=== PATIENT | male | born 2000 ===

== ENCOUNTER 2019-07-03 15:00 | Emergency (ER) | payer OTHER ==
--- NOTE | 2019-07-03 16:24 | UC ---
Throat Pain/Nasal Pablo HPI - HPI Summary HPI Summary: The patient is a 19-year-old male with about a 10 day history of sore throat. Since last he has felt feverish. He has had a mild retrobulbar headache. He has not had problems swallowing liquids. It does hurt to swallow solids. He has no nausea vomiting or diarrhea. He denies any abdominal pain. He has no chest pain or shortness of breath. He still has his tonsils. He has never been diagnosed with mono. - History of Current Complaint Chief Complaint: UCRespiratory Stated Complaint: THROAT PAIN Time Seen by Provider: 07/03/19 16:00 Hx Obtained From: Patient Onset/Duration: Gradual Onset, Lasting Days Severity: Moderate Pain Intensity: 6 Pain Scale Used: 0-10 Numeric Cough: Nonproductive - and rare Associated Signs & Symptoms: Positive: Fever Related History: Seasonal Allergies - Epiglottits Risk Factors Epiglottis Risk Factors: Negative - Allergies/Home Medications Allergies/Adverse Reactions: Allergies Allergy/AdvReac Type Severity Reaction Status Date / Time No Known Allergies Allergy Verified 07/03/19 15:53 Home Medications: Home Medications Albuterol HFA INHALER* [Ventolin HFA Inhaler*] 1 puff INH Q4H PRN 07/03/19 [ History Confirmed 07/03/19] D-Methorphan/PE/Acetaminophen [Cold Relief/Non-Drowsy/Da 10-5-325 mg] 1 tab PO Q12HR PRN 07/03/19 [History Confirmed 07/03/19] PMH/Surg Hx/FS Hx/Imm Hx Previously Healthy: Yes Respiratory History: Asthma - Surgical History Surgical History: None - Family History Known Family History: Positive: Non-Contributory - Social History Alcohol Use: Weekly Substance Use Type: Marijuana Substance Use Comment - Amount & Last Used: weekly Smoking Status (MU): Never Smoked Tobacco Type: Smokeless Tobacco Review of Systems All Other Systems Reviewed And Are Negative: Yes Constitutional: Positive: Fatigue Skin: Positive: Negative Eyes: Positive: Negative ENT: Positive: Sore Throat Respiratory: Positive: Cough Cardiovascular: Positive: Negative Gastrointestinal: Positive: Negative Genitourinary: Positive: Negative Motor: Positive: Negative Neurovascular: Positive: Negative Musculoskeletal: Positive: Negative Neurological: Positive: Headache Psychological: Positive: Negative Physical Exam Triage Information Reviewed: Yes Appearance: Well-Appearing, No Pain Distress, Well-Nourished Vital Signs: Initial Vital Signs Temp 98.6 F 07/03/19 15:54 Pulse 88 07/03/19 15:54 Resp 18 07/03/19 15:54 BP 134/81 07/03/19 15:54 Pulse Ox 99 07/03/19 15:54 Vital Signs Reviewed: Yes Eye Exam: Normal Eyes: Positive: Conjunctiva Clear ENT: Positive: Hearing grossly normal, Pharyngeal erythema, Tonsillar swelling, Tonsillar exudate, Uvula midline. Negative: Nasal congestion, Nasal drainage, Hoarse voice, Dental tenderness, Sinus tenderness Dental Exam: Normal Neck: Positive: Supple, Nontender, Enlarged Nodes @ - prominent anterior and posterior lymphadenopathy Respiratory: Positive: Lungs clear, Normal breath sounds, No respiratory distress, No accessory muscle use Cardiovascular: Positive: RRR, No Murmur, Pulses Normal Abdomen Description: Positive: Nontender, No Organomegaly, Soft. Negative: CVA Tenderness (R), CVA Tenderness (L) Bowel Sounds: Positive: Present Musculoskeletal: Positive: ROM Intact, No Edema Neurological: Positive: Alert Psychological Exam: Normal Skin Exam: Other - no petechiea Throat Pain/Nasal Course/Dx - Course Course Of Treatment: strep (-) PT REFUSES BLOOD WORK DUE TO FEAR OF NEEDLES - Differential Dx/Diagnosis Provider Diagnosis: Tonsillitis Discharge ED - Sign-Out/Discharge Documenting (check all that apply): Patient Departure All imaging exams completed and their final reports reviewed: No Studies - Discharge Plan Condition: Stable Disposition: HOME Patient Education Materials: Mononucleosis (ED) Referrals: No Primary Care Phys,NOPCP [Primary Care Provider] - Additional Instructions: Recheck in 4-5 days if not improved As discussed your strep test was NEGATIVE based on exam I suspect you have a viral tonsillitis with MONO being a likely diagnosis if you are unable to swallow or symptoms worsen please get rechecked rest fluids tylenol or advil for pain no contact sports for 2-3 weeks - Billing Disposition and Condition Condition: STABLE Disposition: Home
== END 2019-07-03 16:26 | disposition home or self-care (01) ==
LOC: UCEAST 15:00
DX: J03.90 Acute tonsillitis, unspecified (principal)
CPT/HCPCS: 87651; 99201; G0463